=== PATIENT | male | born 1935 | race Caucasian/White ===

== ENCOUNTER 2018-12-21 21:51 | Inpatient (IN) | payer MEDICARE ==
[~2018-12-21] VITALS: Ht 172.7 cm; Wt 68.0 kg
[2018-12-21] MEDS ORDERED: ASCO500C18 PO (22:15)
[2018-12-21] MEDS ORDERED: MEMA28CA PO (22:15)
[2018-12-21] MEDS ORDERED: QUET25TA PO (22:15)
[2018-12-21] MEDS ORDERED: ACET-2154 PO (22:15)
[2018-12-21] MEDS ORDERED: DOCU-141 PO (22:15)
[2018-12-21 22:35] LABS: BASOPHILS % (AUTO) 0.4 % (0.0-2.0); EOSINOPHILS # (AUTO) 0.2 K/uL (0.0-0.7); EOSINOPHILS % (AUTO) 2.3 % (0.0-7.0); HEMATOCRIT 32.5 % (36.7-47.1); HEMOGLOBIN 10.4 g/dL (12.5-16.3); LYMPHOCYTES # (AUTO) 1.9 K/uL (20.0-40.0); LYMPHOCYTES % (AUTO) 21.4 % (20.5-51.5); MEAN CORPUSCULAR HEMOGLOBIN 20.8 uug (23.8-33.4); MEAN CORPUSCULAR HGB CONC 32 g/dL (32.5-36.3); MEAN CORPUSCULAR VOLUME 64.8 fL (73.0-96.2); MONOCYTES # (AUTO) 0.8 K/uL (2.0-10.0); MONOCYTES % (AUTO) 9.1 % (0.0-11.0); NEUTROPHILS # (AUTO) 5.9 K/uL (1.8-8.9); NEUTROPHILS % (AUTO) 66.8 % (38.5-71.5); PLATELET COUNT (AUTO) 229 K/uL (152-348); RED BLOOD CELL COUNT(AUTO) 5.02 MIL/uL (4.06-5.63); WHITE BLOOD COUNT (AUTO) 8.8 K/uL (3.6-10.2)
[2018-12-21 22:36] LABS: CARBON DIOXIDE 28 mmol/L (21-32); CHLORIDE 101 mmol/L (98-107); CREATININE 1.1 mg/dL (0.6-1.3); GLUCOSE 84 mg/dL (74-106); POTASSIUM 3.6 mmol/L (3.5-5.1); UREA NITROGEN, BLOOD 27 mg/dL (7-18)
[2018-12-21 22:46] LABS: ETHANOL < 3 MG/DL (0-0)
[2018-12-21 22:52] LABS: ALANINE AMINOTRANSFERASE 17 U/L (16-63); ALKALINE PHOSPHATASE 73 U/L (50-136); ASPARTATE AMINOTRANSFERASE 15 U/L (15-37); BILIRUBIN,DIRECT 0.2 mg/dL (0.0-0.2); BILIRUBIN,TOTAL 0.5 mg/dL (0.2-1.0); TOTAL PROTEIN, SERUM 7.3 g/dL (6.4-8.2)
[2018-12-21 22:54] LABS: ACETAMINOPHEN < 2.0 ug/mL (10-30)
[2018-12-22] MEDS ORDERED: MAGNESIUM HYDROXIDE 30 ML LIQUID UDC PO PRN (00:15)
[2018-12-22] MEDS ORDERED: MAG HYDROX/AL HYDROX/SIMETH 30 ML LIQUID UDC PO PRN (00:15)
[2018-12-22] MEDS ORDERED: TEMAZEPAM 7.5 MG CAPSULE PO PRN (00:15)
[2018-12-22] MEDS ORDERED: ACETAMINOPHEN 325 MG TABLET PO PRN (00:15)
[2018-12-22 00:43] VITALS: BP 103/47
[2018-12-22 07:30] VITALS: BP 115/51
[2018-12-22] MEDS: QUETIAPINE FUMARATE 25 MG TABLET PO SCH ×2 (14:35→15:57)
[2018-12-22 15:03] VITALS: BP 115/51
[2018-12-22] MEDS: LORAZEPAM 0.5 MG TABLET PO PRN (15:56)
[2018-12-22 20:13] VITALS: BP 99/67
[2018-12-23 07:16] LABS: FERRITIN 291 ng/mL (26-388)
[2018-12-23 07:30] VITALS: BP 111/51
[2018-12-23 07:44] LABS: IRON, SERUM 71 ug/dL (50-175)
[2018-12-23] MEDS: QUETIAPINE FUMARATE 25 MG TABLET PO SCH ×3 (08:59→17:22)
[2018-12-23 16:44] VITALS: BP 121/80
[2018-12-23] MEDS: DOCUSATE SODIUM 100 MG CAPSULE PO SCH (17:22)
[2018-12-23 20:00] VITALS: BP 105/52
[2018-12-23] MEDS: ATORVASTATIN 20 MG TABLET PO SCH (20:12)
[2018-12-24 07:30] VITALS: BP 126/53
[2018-12-24] MEDS: QUETIAPINE FUMARATE 25 MG TABLET PO SCH ×3 (08:41→17:07)
[2018-12-24] MEDS: ASCORBIC ACID 500 MG TABLET PO SCH (08:41)
[2018-12-24] MEDS: DOCUSATE SODIUM 100 MG CAPSULE PO SCH ×2 (08:41→17:07)
[2018-12-24] MEDS ORDERED: Medication Not On Formulary EA (Ascorbic Acid (Vitamin C) 500 MG) PO SCH (09:00)
[2018-12-24 16:32] VITALS: BP 105/46
[2018-12-24] MEDS: LORAZEPAM 0.5 MG TABLET PO PRN (18:34)
[2018-12-24 20:00] VITALS: BP 115/49
[2018-12-24] MEDS: ATORVASTATIN 20 MG TABLET PO SCH (20:18)
[2018-12-25 07:30] VITALS: BP 113/44
[2018-12-25] MEDS: DOCUSATE SODIUM 100 MG CAPSULE PO SCH ×2 (08:52→17:19)
[2018-12-25] MEDS: ASCORBIC ACID 500 MG TABLET PO SCH (08:52)
[2018-12-25] MEDS: QUETIAPINE FUMARATE 25 MG TABLET PO SCH ×3 (08:52→17:19)
[2018-12-25 15:29] VITALS: BP 120/48
[2018-12-25 19:48] VITALS: BP 116/52
[2018-12-25] MEDS: LORAZEPAM 0.5 MG TABLET PO PRN (20:31)
[2018-12-25] MEDS: ATORVASTATIN 20 MG TABLET PO SCH (20:31)
[2018-12-26 02:59] LABS: *BILIRUBIN,URIN NEGATIVE (NEGATIVE); *BLOOD, URINE 1+ (NEGATIVE); *CLARITY,URINE TURBID (CLEAR); *COLOR,URINE YELLOW (YELLOW); *KETONES,URINE NEGATIVE (NEGATIVE); *UROBILINOGEN,URINE 0.2 E.U./dl (NORMAL); LEUKOCYTE ESTERASE ,URINE 3+ (NEGATIVE); NITRITE, URINE NEGATIVE (NEGATIVE); UGLUCOSE NEGATIVE (NEGATIVE)
[2018-12-26 03:14] LABS: BACTERIA,URINE FEW /HPF (NONE SEEN); SQUAMOUS EPITHELIAL CELL,UR NONE SEEN /HPF (NONE SEEN); WBC,URINE TNTC /HPF (0-3)
[2018-12-26 07:30] VITALS: BP 115/56
[2018-12-26] MEDS: QUETIAPINE FUMARATE 25 MG TABLET PO SCH ×2 (08:14→16:40)
[2018-12-26] MEDS: DOCUSATE SODIUM 100 MG CAPSULE PO SCH ×2 (08:14→16:41)
[2018-12-26] MEDS: ASCORBIC ACID 500 MG TABLET PO SCH (08:14)
[2018-12-26] MEDS: DIVALPROEX SPRINKLE 125 MG CAP.SPRINK PO SCH ×2 (12:11→16:41)
[2018-12-26] MEDS ORDERED: CEphaleXIN 500 MG CAPSULE PO SCH (13:30)
[2018-12-26] MEDS: CEphaleXIN 500 MG CAPSULE PO SCH ×2 (14:41→20:50)
[2018-12-26 16:09] VITALS: BP 99/57
[2018-12-26] MEDS: ATORVASTATIN 20 MG TABLET PO SCH (20:50)
[2018-12-27] MEDS: CEphaleXIN 500 MG CAPSULE PO SCH ×3 (06:37→21:15)
[2018-12-27] MEDS: DIVALPROEX SPRINKLE 125 MG CAP.SPRINK PO SCH ×3 (08:00→17:10)
[2018-12-27] MEDS: QUETIAPINE FUMARATE 25 MG TABLET PO SCH ×2 (08:02→17:10)
[2018-12-27] MEDS: ASCORBIC ACID 500 MG TABLET PO SCH (08:02)
[2018-12-27] MEDS: DOCUSATE SODIUM 100 MG CAPSULE PO SCH ×2 (08:02→17:10)
[2018-12-27 16:00] VITALS: BP 84/42
[2018-12-27] MEDS: ATORVASTATIN 20 MG TABLET PO SCH (21:14)
[2018-12-28] MEDS: CEphaleXIN 500 MG CAPSULE PO SCH ×3 (05:54→22:43)
[2018-12-28 07:30] VITALS: BP 117/51
[2018-12-28] MEDS: DOCUSATE SODIUM 100 MG CAPSULE PO SCH ×2 (11:09→17:14)
[2018-12-28] MEDS: DIVALPROEX SPRINKLE 125 MG CAP.SPRINK PO SCH ×3 (11:09→17:19)
[2018-12-28] MEDS: QUETIAPINE FUMARATE 25 MG TABLET PO SCH ×2 (11:10→17:19)
[2018-12-28] MEDS: ASCORBIC ACID 500 MG TABLET PO SCH (11:10)
[2018-12-28 20:00] VITALS: BP 116/46
[2018-12-28] MEDS: ATORVASTATIN 20 MG TABLET PO SCH (20:48)
[2018-12-29] MEDS: CEphaleXIN 500 MG CAPSULE PO SCH ×3 (06:12→20:59)
[2018-12-29 07:30] VITALS: BP 122/58
[2018-12-29] MEDS: QUETIAPINE FUMARATE 25 MG TABLET PO SCH ×3 (10:02→17:09)
[2018-12-29] MEDS: DOCUSATE SODIUM 100 MG CAPSULE PO SCH ×2 (10:03→17:07)
[2018-12-29] MEDS: ASCORBIC ACID 500 MG TABLET PO SCH (10:03)
[2018-12-29] MEDS: DIVALPROEX SPRINKLE 125 MG CAP.SPRINK PO SCH ×3 (10:03→17:09)
[2018-12-29 14:59] LABS: BASOPHILS # (AUTO) 0.1 K/uL (0.0-8.0); BASOPHILS % (AUTO) 0.6 % (0.0-2.0); EOSINOPHILS # (AUTO) 0.2 K/uL (0.0-0.7); EOSINOPHILS % (AUTO) 2.2 % (0.0-7.0); HEMATOCRIT 30.9 % (36.7-47.1); HEMOGLOBIN 9.9 g/dL (12.5-16.3); LYMPHOCYTES # (AUTO) 2.3 K/uL (20.0-40.0); LYMPHOCYTES % (AUTO) 26.6 % (20.5-51.5); MEAN CORPUSCULAR HEMOGLOBIN 20.7 uug (23.8-33.4); MEAN CORPUSCULAR HGB CONC 32 g/dL (32.5-36.3); MEAN CORPUSCULAR VOLUME 64.9 fL (73.0-96.2); MONOCYTES # (AUTO) 0.8 K/uL (2.0-10.0); NEUTROPHILS # (AUTO) 5.3 K/uL (1.8-8.9); NEUTROPHILS % (AUTO) 61.6 % (38.5-71.5); PLATELET COUNT (AUTO) 212 K/uL (152-348); RED BLOOD CELL COUNT(AUTO) 4.76 MIL/uL (4.06-5.63); WHITE BLOOD COUNT (AUTO) 8.6 K/uL (3.6-10.2)
[2018-12-29 15:09] LABS: ALANINE AMINOTRANSFERASE 17 U/L (16-63); ALKALINE PHOSPHATASE 77 U/L (50-136); ASPARTATE AMINOTRANSFERASE 11 U/L (15-37); BILIRUBIN,TOTAL 0.4 mg/dL (0.2-1.0); CARBON DIOXIDE 29 mmol/L (21-32); CHLORIDE 100 mmol/L (98-107); CREATININE 1.3 mg/dL (0.6-1.3); GLUCOSE 91 mg/dL (74-106); POTASSIUM 4.5 mmol/L (3.5-5.1); UREA NITROGEN, BLOOD 28 mg/dL (7-18)
[2018-12-29 16:00] VITALS: BP 99/51
[2018-12-29 20:00] VITALS: BP 107/57
[2018-12-29] MEDS: ATORVASTATIN 20 MG TABLET PO SCH (21:00)
[2018-12-30] MEDS: CEphaleXIN 500 MG CAPSULE PO SCH ×3 (05:50→23:03)
[2018-12-30 07:30] VITALS: BP 96/50
[2018-12-30] MEDS: QUETIAPINE FUMARATE 25 MG TABLET PO SCH ×3 (09:26→17:40)
[2018-12-30] MEDS: DIVALPROEX SPRINKLE 125 MG CAP.SPRINK PO SCH ×3 (09:26→17:40)
[2018-12-30] MEDS: DOCUSATE SODIUM 100 MG CAPSULE PO SCH ×2 (09:26→17:40)
[2018-12-30] MEDS: ASCORBIC ACID 500 MG TABLET PO SCH (09:26)
[2018-12-30 15:54] VITALS: BP 105/51
[2018-12-30] MEDS: ATORVASTATIN 20 MG TABLET PO SCH (20:20)
[2018-12-30 21:05] VITALS: BP 107/43
[2018-12-31] MEDS: CEphaleXIN 500 MG CAPSULE PO SCH ×3 (06:19→21:09)
[2018-12-31 07:30] VITALS: BP 90/41
[2018-12-31] MEDS: DIVALPROEX SPRINKLE 125 MG CAP.SPRINK PO SCH ×3 (08:34→17:38)
[2018-12-31] MEDS: DOCUSATE SODIUM 100 MG CAPSULE PO SCH ×2 (08:34→17:38)
[2018-12-31] MEDS: QUETIAPINE FUMARATE 25 MG TABLET PO SCH ×3 (08:34→17:38)
[2018-12-31] MEDS: ASCORBIC ACID 500 MG TABLET PO SCH (08:34)
[2018-12-31 15:35] VITALS: BP 90/50
[2018-12-31 19:50] VITALS: BP 94/33
[2018-12-31] MEDS: ATORVASTATIN 20 MG TABLET PO SCH (21:09)
[2018-12-31 22:00] VITALS: BP 101/63
[2019-01-01] MEDS: CEphaleXIN 500 MG CAPSULE PO SCH ×3 (05:59→21:05)
[2019-01-01 07:30] VITALS: BP 105/54
[2019-01-01] MEDS: DOCUSATE SODIUM 100 MG CAPSULE PO SCH ×2 (08:29→17:25)
[2019-01-01] MEDS: QUETIAPINE FUMARATE 25 MG TABLET PO SCH ×3 (08:29→17:25)
[2019-01-01] MEDS: ASCORBIC ACID 500 MG TABLET PO SCH (08:29)
[2019-01-01] MEDS: DIVALPROEX SPRINKLE 125 MG CAP.SPRINK PO SCH ×3 (08:29→17:25)
[2019-01-01 15:14] VITALS: BP 90/50
[2019-01-01 20:09] VITALS: BP 107/43
[2019-01-01] MEDS: ATORVASTATIN 20 MG TABLET PO SCH (21:05)
[2019-01-02] MEDS: CEphaleXIN 500 MG CAPSULE PO SCH (06:15)
[2019-01-02 07:30] VITALS: BP 110/59
[2019-01-02] MEDS: QUETIAPINE FUMARATE 25 MG TABLET PO SCH ×2 (08:48→12:15)
[2019-01-02] MEDS: DIVALPROEX SPRINKLE 125 MG CAP.SPRINK PO SCH ×2 (08:48→12:15)
[2019-01-02] MEDS: DOCUSATE SODIUM 100 MG CAPSULE PO SCH (08:48)
[2019-01-02] MEDS: ASCORBIC ACID 500 MG TABLET PO SCH (08:48)
== END 2019-01-02 15:30 | DRG 885 ==
LOC: ER 21:52 → GPS 23:28
PROVIDERS: ADMIT Psychiatry & Neurology Psychosomatic Medicine; ATTEND Nurse Practitioner Acute Care
DX: F25.0 Schizoaffective disorder, bipolar type (principal); F01.51 Vascular dementia, unspecified severity, with behavioral disturbance; N39.0 Urinary tract infection, site not specified; E44.1 Mild protein-calorie malnutrition; Z79.899 Other long term (current) drug therapy; E78.5 Hyperlipidemia, unspecified; D63.8 Anemia in other chronic diseases classified elsewhere; E86.0 Dehydration; D50.9 Iron deficiency anemia, unspecified; Z68.22 Body mass index [BMI] 22.0-22.9, adult
CPT/HCPCS: 36415; 70030-TC; 71045; 80164; 83550; 85025; 87086; 93005; A4663; G0480; G0480-TC

== ENCOUNTER 2019-01-10 21:46 | Inpatient (IN) | payer MEDICARE ==
[~2019-01-10] VITALS: Ht 177.8 cm; Wt 64.4 kg
[~2019-01-10 21:46] MED LIST: ACET-2154 PO; ASCO500C18 PO; DOCU-141 PO
--- NOTE | 2019-01-10 21:53 | NUR ---
Dr. Weber at bedside for MSE.
[2019-01-10] MEDS ORDERED: MEMA28CA PO (22:01)
[2019-01-10] MEDS ORDERED: QUET25TA PO (22:01)
--- NOTE | 2019-01-10 22:07 | NUR ---
Xray at bedside.
[2019-01-10 22:12] LABS: BASOPHILS % (AUTO) 0.5 % (0.0-2.0); EOSINOPHILS # (AUTO) 0.2 K/uL (0.0-0.7); HEMATOCRIT 28.9 % (36.7-47.1); HEMOGLOBIN 9.3 g/dL (12.5-16.3); LYMPHOCYTES # (AUTO) 2.2 K/uL (20.0-40.0); LYMPHOCYTES % (AUTO) 26.7 % (20.5-51.5); MEAN CORPUSCULAR HEMOGLOBIN 20.8 uug (23.8-33.4); MEAN CORPUSCULAR HGB CONC 32 g/dL (32.5-36.3); MEAN CORPUSCULAR VOLUME 64.7 fL (73.0-96.2); MONOCYTES # (AUTO) 0.9 K/uL (2.0-10.0); MONOCYTES % (AUTO) 10.8 % (0.0-11.0); NEUTROPHILS # (AUTO) 4.9 K/uL (1.8-8.9); PLATELET COUNT (AUTO) 198 K/uL (152-348); RED BLOOD CELL COUNT(AUTO) 4.46 MIL/uL (4.06-5.63); WHITE BLOOD COUNT (AUTO) 8.4 K/uL (3.6-10.2)
[2019-01-10 22:19] LABS: CARBON DIOXIDE 29 mmol/L (21-32); CHLORIDE 101 mmol/L (98-107); GLUCOSE 99 mg/dL (74-106); UREA NITROGEN, BLOOD 23 mg/dL (7-18)
[2019-01-10 22:24] LABS: ETHANOL < 3 MG/DL (0-0)
[2019-01-10 22:25] LABS: ALANINE AMINOTRANSFERASE 22 U/L (16-63); ALKALINE PHOSPHATASE 85 U/L (50-136); ASPARTATE AMINOTRANSFERASE 15 U/L (15-37); BILIRUBIN,DIRECT 0.1 mg/dL (0.0-0.2); BILIRUBIN,TOTAL 0.3 mg/dL (0.2-1.0); TOTAL PROTEIN, SERUM 6.8 g/dL (6.4-8.2)
[2019-01-10 22:26] LABS: ACETAMINOPHEN < 2.0 ug/mL (10-30)
[2019-01-10 22:35] LABS: THYROID STIMULATING HORMONE 1.768 mIU/mL (0.358-3.740)
--- NOTE | 2019-01-10 22:57 | NUR ---
Called Bottle Blowing Machine Tender for sitter. No sitter available at this time. Adviced to use security at the moment.
--- NOTE | 2019-01-10 23:06 | NUR ---
Security Graham at bedside.
--- NOTE | 2019-01-10 23:20 | NUR ---
Pt medically cleared by Dr. Weber.
[2019-01-10] MEDS ORDERED: LORAZEPAM 2 MG/1 ML VIAL ONE (23:27)
[2019-01-10] MEDS ORDERED: LORAZEPAM 2 MG/1 ML VIAL IM ONE (23:30)
--- NOTE | 2019-01-10 23:35 | NUR ---
Report given to Magaly BISHOP [facility].
[2019-01-10] MEDS ORDERED: MAG HYDROX/AL HYDROX/SIMETH 30 ML LIQUID UDC PO PRN (23:45)
[2019-01-10] MEDS ORDERED: TEMAZEPAM 7.5 MG CAPSULE PO PRN (23:45)
[2019-01-10] MEDS ORDERED: MAGNESIUM HYDROXIDE 30 ML LIQUID UDC PO PRN (23:45)
[2019-01-10] MEDS ORDERED: LORAZEPAM 0.5 MG TABLET PO PRN (23:45)
[2019-01-10] MEDS ORDERED: ACETAMINOPHEN 325 MG TABLET PO PRN (23:45)
--- NOTE | 2019-01-11 00:03 | NUR ---
Pt wanded by Security [place] and searched for contraband.
--- NOTE | 2019-01-11 00:50 | NUR ---
Admission note; Received patient via gurney from the ED. Patient very groggy, and unable to answer admit questions. Noted that patient has severe memory problems and is oriented to self only. Belongings and cloths removed, patient used bathroom and went to bed. No acute behaviors noted. VS are stable.
[2019-01-11] MEDS ORDERED: ACETAMINOPHEN 325 MG TABLET PO PRN (01:30)
[2019-01-11] MEDS ORDERED: LORAZEPAM 0.5 MG TABLET PO PRN (01:30)
[2019-01-11] MEDS ORDERED: MAGNESIUM HYDROXIDE 30 ML LIQUID UDC PO PRN (01:30)
[2019-01-11] MEDS ORDERED: TEMAZEPAM 7.5 MG CAPSULE PO PRN (01:30)
[2019-01-11] MEDS ORDERED: MAG HYDROX/AL HYDROX/SIMETH 30 ML LIQUID UDC PO PRN (01:30)
[2019-01-11 07:30] VITALS: BP 113/62
--- NOTE | 2019-01-11 12:22 | NUR ---
Social Work Assessment: This comic writer has review this patient's psychosocial dated 12/22/18 and can attest to the accuracy of the information therein. There have been no social changed since his last assessment. Patient is alert to self only and appears to be in an anxious and restless mood. Patient presents confused and disoriented, and he is unable to participate in social work assessment. Patient unable to answer questions regarding suicidal or homicidal ideation. Patient unable to answer questions regarding visual or auditory hallucinations. Patient's insight, judgment, and impulse control are questionable. Patient is a current resident of [facility] [[address] [place] [address]; ]. SW will speak with Johnna, Tilt Wall Supervisor at the facility and collaborate with MD to discuss most appropriate discharge plans for this patient. Patient may require a higher level of care upon discharge. SW will form a safe and proper discharge plan.
--- NOTE | 2019-01-11 12:40 | NUR ---
Firearms Report: BROOKS completed and submitted [employer] Firearms Report for 5150 DTO/GD certifications.
--- NOTE | 2019-01-11 14:17 | NUR ---
Gps/Escalator Constructor- Dr Muhammad was called informed of patient's both lower eye lids are reddened, and noted patient always rubbing , no orders received, will recheck eyes in am.
[2019-01-11 16:22] VITALS: BP 103/46
[2019-01-11] MEDS ORDERED: ACETAMINOPHEN 325 MG TABLET PO SCH (16:30)
[2019-01-11] MEDS: DIVALPROEX SPRINKLE 125 MG CAP.SPRINK PO SCH (16:39)
[2019-01-11] MEDS: QUETIAPINE FUMARATE 25 MG TABLET PO SCH (16:39)
[2019-01-11] MEDS: DOCUSATE SODIUM 100 MG CAPSULE PO SCH (17:25)
[2019-01-11 20:50] VITALS: BP 118/51
--- NOTE | 2019-01-12 06:08 | NUR ---
GPS: REMAIN CALM AND COOPERATIVE. NO AGITATION NOTED AT THIS TIME. SLEPT 7 HRS THROUGH THE NIGHT. RESTING IN BED COMFORTABLY. CONTINUE PLAN OF CARE.
[2019-01-12 07:30] VITALS: BP 100/42
[2019-01-12] MEDS: QUETIAPINE FUMARATE 25 MG TABLET PO SCH ×3 (08:52→17:02)
[2019-01-12] MEDS: DIVALPROEX SPRINKLE 125 MG CAP.SPRINK PO SCH ×3 (08:52→17:02)
[2019-01-12] MEDS: DOCUSATE SODIUM 100 MG CAPSULE PO SCH ×2 (08:52→17:02)
[2019-01-12] MEDS: ASCORBIC ACID 500 MG TABLET PO SCH (08:52)
[2019-01-12 16:00] VITALS: BP 101/47
--- NOTE | 2019-01-12 19:00 | NUR ---
Received patient asleep in bed. No acute distress or discomfort observed. Fall and safety precautions in place. Bed in lowest position and locked. Side rails up and in locked position. Frequent visual checks. Will continue to monitor.
[2019-01-12 20:00] VITALS: BP 105/46
--- NOTE | 2019-01-12 22:00 | NUR ---
continues to sleep. no distress noted.
[2019-01-13 07:30] VITALS: BP 125/45
[2019-01-13] MEDS: DIVALPROEX SPRINKLE 125 MG CAP.SPRINK PO SCH ×3 (09:14→17:29)
[2019-01-13] MEDS: QUETIAPINE FUMARATE 25 MG TABLET PO SCH ×3 (09:14→17:29)
[2019-01-13] MEDS: DOCUSATE SODIUM 100 MG CAPSULE PO SCH ×2 (09:15→17:29)
[2019-01-13] MEDS: ASCORBIC ACID 500 MG TABLET PO SCH (09:15)
[2019-01-13 16:00] VITALS: BP 96/46
[2019-01-13 20:00] VITALS: BP 104/47
[2019-01-14 07:30] VITALS: BP 110/69
[2019-01-14] MEDS: DOCUSATE SODIUM 100 MG CAPSULE PO SCH ×2 (08:17→16:54)
[2019-01-14] MEDS: QUETIAPINE FUMARATE 25 MG TABLET PO SCH ×3 (08:17→16:54)
[2019-01-14] MEDS: ASCORBIC ACID 500 MG TABLET PO SCH (08:17)
[2019-01-14] MEDS: DIVALPROEX SPRINKLE 125 MG CAP.SPRINK PO SCH ×3 (08:17→16:54)
[2019-01-14 15:23] VITALS: BP 104/45
[2019-01-14 20:00] VITALS: BP 108/48
[2019-01-15 07:30] VITALS: BP 104/49
[2019-01-15 08:00] VITALS: BP 122/55
[2019-01-15] MEDS: DOCUSATE SODIUM 100 MG CAPSULE PO SCH ×2 (09:01→18:11)
[2019-01-15] MEDS: ASCORBIC ACID 500 MG TABLET PO SCH (09:01)
[2019-01-15] MEDS: DIVALPROEX SPRINKLE 125 MG CAP.SPRINK PO SCH ×3 (09:01→18:11)
[2019-01-15] MEDS: QUETIAPINE FUMARATE 25 MG TABLET PO SCH ×3 (09:01→18:11)
[2019-01-15 13:45] VITALS: BP 93/41
[2019-01-15 16:00] VITALS: BP 99/43
[2019-01-15 17:48] VITALS: BP 106/50
[2019-01-15 20:23] VITALS: BP 105/51
--- NOTE | 2019-01-15 21:44 | NUR ---
received to care, lying in bed, asleep, but easy to awaken. compliant with staff. as of this time, he remains asleep. no distress noted. will continue to monitor closely.
--- NOTE | 2019-01-16 06:17 | NUR ---
slept 4.5 hours, total.
[2019-01-16 07:30] VITALS: BP 101/49
[2019-01-16] MEDS: ASCORBIC ACID 500 MG TABLET PO SCH (08:05)
[2019-01-16] MEDS: QUETIAPINE FUMARATE 25 MG TABLET PO SCH ×3 (08:06→16:33)
[2019-01-16] MEDS: DOCUSATE SODIUM 100 MG CAPSULE PO SCH ×2 (08:06→16:33)
[2019-01-16] MEDS: DIVALPROEX SPRINKLE 125 MG CAP.SPRINK PO SCH ×3 (08:06→16:33)
--- NOTE | 2019-01-16 17:53 | NUR ---
RECEIVED PATIENT AWAKE , ALERT AND ORIENTED X1-2, PATIENT AMBULATORY AND SELF CARE, DENIES PAIN , COMPLIANT WITH MEDICATION, PATIENT DENIES SI AND HI , WILL CONTINUE MONITOR
[2019-01-16 20:15] VITALS: BP 116/45
--- NOTE | 2019-01-16 22:00 | NUR ---
received to care, asleep, lying in bed, but easy to awaken. compliant with staff direction. as of this time, he remains asleep. no distress noted. will continue to monitor closely.
--- NOTE | 2019-01-17 06:43 | NUR ---
slept 8.5 hours, total. remains asleep. no distress noted.
[2019-01-17 07:30] VITALS: BP 92/42
[2019-01-17] MEDS: DIVALPROEX SPRINKLE 125 MG CAP.SPRINK PO SCH ×3 (08:49→16:31)
[2019-01-17] MEDS: DOCUSATE SODIUM 100 MG CAPSULE PO SCH ×2 (08:49→16:31)
[2019-01-17] MEDS: ASCORBIC ACID 500 MG TABLET PO SCH (08:49)
[2019-01-17] MEDS: QUETIAPINE FUMARATE 25 MG TABLET PO SCH ×3 (08:49→16:31)
[2019-01-17 16:00] VITALS: BP 92/49
[2019-01-17 20:10] VITALS: BP 98/43
--- NOTE | 2019-01-17 22:00 | NUR ---
received to care, asleep, lying in bed, but easy to awaken. compliant with staff direction. as of 2199, he appears to be asleep. no distress noted. will continue to monitor closely.
[2019-01-18 07:30] VITALS: BP 99/43
--- NOTE | 2019-01-18 09:06 | NUR ---
DC Note: Patient will be discharged to [facility] [Address: [address], [place] [address]; ] via ambulance at 1pm. Please arrange an ambulance for this patient. Spoke with Johnna at the facility who states that they are ready to accept the patient today. Patient does not have any family to contact at this time. Patient is alert and oriented x1 and is cooperative. Patient will follow-up at the facility with Screening Representative, Dr. العراقي [[address] [place] [address]; [phone]]. Patient will also follow-up at the facility with [facility] [[address] [place] [address]; ]. Patient was provided with outpatient mental health referrals to [facility] , [facility] , and the National Suicide Prevention Lifeline .
[2019-01-18] MEDS: DIVALPROEX SPRINKLE 125 MG CAP.SPRINK PO SCH ×2 (09:07→13:05)
[2019-01-18] MEDS: QUETIAPINE FUMARATE 25 MG TABLET PO SCH ×2 (09:07→13:05)
[2019-01-18] MEDS: DOCUSATE SODIUM 100 MG CAPSULE PO SCH (09:10)
[2019-01-18] MEDS: ASCORBIC ACID 500 MG TABLET PO SCH (09:10)
--- NOTE | 2019-01-18 13:11 | NUR ---
Gps/Grocery Clerk Stocking- Discharged planning in progress, will be dc'd today to [facility], patient was well informed, claimed he is not leaving anywhere today. Forgetful, reoriented from time to time, monitoring needs, safety reviewed and emphasized. Ashley CANDY PULLER in to see patient, made aware of discharge plan today.
--- NOTE | 2019-01-18 15:16 | NUR ---
Gps/Level Designer- Discharged to [facility] via ambulance, all belongings was given back to patient. No distress, no complaints noted.
== END 2019-01-18 15:21 | DRG 885 ==
LOC: ER 21:48 → GPS 01-11 00:19
PROVIDERS: ADMIT Psychiatry & Neurology Psychiatry
DX: F25.0 Schizoaffective disorder, bipolar type (principal); E44.0 Moderate protein-calorie malnutrition; Z79.899 Other long term (current) drug therapy; R62.7 Adult failure to thrive; Z68.20 Body mass index [BMI] 20.0-20.9, adult; D64.9 Anemia, unspecified; E78.5 Hyperlipidemia, unspecified; K59.09 Other constipation; F41.9 Anxiety disorder, unspecified
CPT/HCPCS: 36415; 70030-TC; 71045; 84443; 85025; 85730; 93005; G0480; G0480-TC; J2060